=== PATIENT | female | born 1960 | race Caucasian/White ===

== ENCOUNTER → 2019-02-21 | Outpatient (CLI) | payer BC ==
[~2019-02-21] MED LIST: CALC-656 PO; CETI-9 PO; CRAN200C PO; DCS100C PO; HYDR-34 PO; IBP600T1 PO; IBP800T PO; MULT-305 PO; OMEP-10 PO; PS30T PO; Simethicone PO
--- NOTE | 2019-02-21 10:04 | Diagnostic Imaging Report ---
Indication: Routine screening. Comparison is made with prior mammogram 05/24/2017 and 05/17/2016. 2-D and 3-D bilateral screening mammography was performed with CAD. Scattered fibroglandular densities are identified bilaterally. Intraparenchymal lymph nodes in the outer portions of both breasts appear stable. No new mass or malignant-appearing microcalcifications are seen. The axillae are unremarkable. Impression: BI-RADS category 2 No mammographic features suspicious for malignancy are identified. ACR BI-RADS Category 2: Benign findings. Result letter will be mailed to the patient. Note: At least 10% of breast cancer is not imaged by mammography. Dictated by: Dictated on workstation # [id number]
== END ==
LOC: RAD 07:50
PROVIDERS: ATTEND Obstetrics & Gynecology
DX: Z12.31 Encounter for screening mammogram for malignant neoplasm of breast (principal)
CPT/HCPCS: 77067

== ENCOUNTER → 2020-12-15 | Outpatient (CLI) | payer OTHER ==
--- NOTE | 2020-12-15 14:55 | Diagnostic Imaging Report ---
PROCEDURE: US Non-ob pelvis comp/trans. TECHNIQUE: Multiple realtime grayscale images were obtained of the pelvis in various projections transabdominally and endovaginally. INDICATION: Pelvic and perineal pain. CORRELATION STUDY: 07/23/2014 FINDINGS: The uterus is not visualized compatible with hysterectomy. Left ovary not visualized compatible with surgical removal. There is thought to remain a right ovary. However, this cannot be visualized either transabdominally and/or transvaginal imaging. No definitive abnormal adnexal mass lesion. IMPRESSION: 1. Findings compatible with hysterectomy and left-sided oophorectomy. 2. There is reported likely right ovary remaining. However, this cannot be visualized either transabdominally and/or transvaginal imaging. No definitive abnormal adnexal mass lesion. Dictated by: Dictated on workstation # [id number]
--- NOTE | 2020-12-16 14:21 | Diagnostic Imaging Report ---
Indication: Routine screening. Comparison is made with prior mammogram 02/21/2019 and 05/24/2017. 2-D and 3-D bilateral screening mammography was performed with CAD. Scattered fibroglandular densities are identified bilaterally. The bilateral breast nodules appear stable. No new mass or malignant appearing microcalcifications are seen. Axillae are unremarkable. IMPRESSION: BI-RADS Category 2 No mammographic features suspicious for malignancy are identified. ACR BI-RADS Category 2: Benign findings. Result letter will be mailed to the patient. Note: At least 10% of breast cancer is not imaged by mammography. Dictated by: Dictated on workstation # [id number]
== END ==
LOC: RAD 13:52
PROVIDERS: ATTEND Obstetrics & Gynecology
DX: Z12.31 Encounter for screening mammogram for malignant neoplasm of breast (principal); R10.2 Pelvic and perineal pain
CPT/HCPCS: 76830; 76856; 77063; 77067

== ENCOUNTER → 2021-12-28 | Outpatient (CLI) | payer OTHER ==
[~2021-12-28] VITALS: Ht 154.9 cm; Wt 59.4 kg
== END | disposition home or self-care (01) ==
LOC: PREOP 07:18
PROVIDERS: ATTEND Internal Medicine
DX: Z01.818 Encounter for other preprocedural examination (principal)

== ENCOUNTER 2021-12-30 07:54 | Day surgery (SDC) | payer OTHER ==
--- NOTE | 2021-12-28 07:58 | HISTORY AND PHYSICAL ---
DATE OF SERVICE: PANENDOSCOPY HISTORY AND PHYSICAL DATE OF ADMISSION: 12/30/2021 HISTORY OF PRESENT ILLNESS: The patient is 61-year-old white female referred by Dr. Salguero for screening colonoscopy as well as diagnostic EGD. Over the past several months, she has noticed dysphagia to solids, pointed to the precordial area where she notes discomfort. It has improved with PPI therapy. She is more concerned that she normally would be as her brother was diagnosed with esophageal cancer and succumbed to the disease in his 60s. The patient reports no smoking or drinking history. About a year ago, she started proton pump inhibitor therapy for similar symptoms, it did improve. She stopped with recurrence of symptoms. She denies hoarseness, cough or sore throat. She has noted no melena or bright red blood per rectum. She underwent colonoscopy [address] Santana, at which time on review of her electronic medical record no evidence for neoplasia, diverticular disease or other abnormalities were reported. She is not aware of any family history for colon cancer. She is currently only taking omeprazole, her only prescription medication, reporting any other significant past medical history: PAST SURGICAL HISTORY: For benign reasons, she has had hysterectomy and previous section. She has also had abdominoplasty in 1990. FAMILY HISTORY: Other than her brother's esophageal cancer, it is also pertinent for diabetes in brother and her father for which she reports no evidence for. SOCIAL HISTORY: She is retired. No past smoking. Occasional social alcohol intake. Five children, all via section. . REVIEW OF SYSTEMS: CONSTITUTIONAL: Denies night sweats, chills, fever or change in weight. GASTROINTESTINAL: As noted in the HPI. PULMONARY: Denies cough, wheezing or shortness of breath. CARDIOVASCULAR: Denies orthopnea, PND, pedal edema, dyspnea on exertion or chest discomfort. PHYSICAL EXAMINATION: GENERAL: Reveals a white female, appears to be in no acute distress. VITAL SIGNS: Normal weight at 131, blood pressure 152/88. HEENT: Unremarkable. Sclerae nonicteric. CHEST: Clear. NECK: Revealed no JVD, adenopathy or bruits. No thyroid abnormality to palpation. CHEST: Clear to auscultation. CARDIOVASCULAR: Reveals regular rate and rhythm without murmur, S3 or S4. ABDOMEN: Soft, supple without mass, organomegaly or tenderness. EXTREMITIES: Reveal no cyanosis, clubbing or edema. ASSESSMENT AND PLAN: The patient is being set up for diagnostic EGD due to history of dysphagia and a family history for esophageal cancer, index case being her brother diagnosed around the age of 60. She is also going to be undergoing screening colonoscopy. Prep instructions were given, and questions were answered. Electronic medical record was reviewed. I thank you for the referral of this pleasant lady. Job ID: [id number] DocumentID: [id number] Dictated Date: 12/26/2021 16:12:09 Retail Warehouse Associate Date: 12/26/2021 17:33:47 Dictated By: MATTY CARMONA MD MTDD
[2021-12-30] VITALS (7 sets, daily range): BP systolic 116–146; BP diastolic 65–92
[~2021-12-30] VITALS: Ht 154 cm; Wt 60.0 kg
[2021-12-30] MEDS ORDERED: LACTATED RINGERS 1,000 ML IV STA (08:07)
[2021-12-30] MEDS ORDERED: LACTATED RINGERS 1,000 ML IV ONE (08:07)
[2021-12-30] MEDS ORDERED: HURRICAINE EXT TUBE (BENZOCAINE) XX PRN (08:15)
--- NOTE | 2021-12-30 08:29 | Pre-Op Note & Conscious Sedat ---
Pre-Operative Progress Note H&P Reviewed The H&P was reviewed, patient examined and no changes noted. Date H&P Reviewed: Dec 30, 2021 Time H&P Reviewed: 08:28 Conscious Sedation Pre-Proced ASA Score 2 For ASA 3 and 4: Consider anesthesia and medical clearance. Also, for patients with a history of failed moderate sedation consider anesthesia. Airway Lungs Heart ASA score ASA 1: a normal healthy patient ASA 2: a patient with a mild systemic disease (mid diabetes, controlled hypertension, obesity ASA 3: a patient with a severe systemic disease that limits activity (angina, COPD, prior Myocardial infarction) ASA 4: a patient with an incapacitating disease that is a constant threat to life (CHF, renal failure) ASA 5: a moribund patient not expected to survive 24 hrs. (ruptured aneurysm) ASA 6: a declared brain- patient whose organs are being harvested. For emergent operations, add the letter E after the classification Mallampati Classification Grade 2 Sedation Plan Analgesia, Amnesia, Plan communicated to team members, Discussed options with patient/fam, Discussed risks with patient/fam The patient is an appropriate candidate to undergo the planned procedure, sedation, and anesthesia. The patient immediately re-assessed prior to indication. MATTY CARMONA MD Dec 30, 2021 08:29
[2021-12-30] MEDS ORDERED: PROPOFOL INJECTION 50 ML IV ONE (09:01)
--- NOTE | 2021-12-30 09:42 | Anesthesia-General Post-Op ---
MAC Patient Condition Mental Status/LOC: Same as Preop Cardiovascular: Satisfactory Nausea/Vomiting: Absent Respiratory: Satisfactory Pain: Controlled Complications: Absent Post Op Complications Complications None Follow Up Care/Instructions Patient Instructions None needed. Anesthesiology Discharge Order Discharge Order Patient is doing well, no complaints, stable vital signs, no apparent adverse anesthesia problems. No complications reported per nursing. JOEL SILVA CRNA Dec 30, 2021 09:42
--- NOTE | 2021-12-30 18:30 | OPERATIVE REPORT ---
DATE OF SERVICE: PANENDOSCOPY SUMMARY EGD was performed for evaluation of dysphagia and family history for esophageal cancer and colonoscopy was performed for screening. The patient was placed in the left lateral decubitus position. The endoscope was inserted into the oral cavity and under direct visualization, the esophagus was intubated. The endoscope was passed down the esophagus through the stomach and then second portion of the duodenum. A careful inspection was made as the endoscope was withdrawn. FINDINGS: The proximal and mid esophagus were unremarkable. There was a small hiatal hernia present and I could not rule out the possibility of short segment Mejia's. Biopsies were obtained from at or just below the Z line and submitted for histopathology. There was no evidence for stricture formation or erosive esophagitis. No rings, webs, strictures or extrinsic compression was identified. The cardia, fundus, antrum, pylorus, pyloric channel, duodenal bulb and second portion of the duodenum were unremarkable. ASSESSMENT: Small hiatal hernia was present with questionable short segment Mejia's. We will await histopathology report from biopsies from the distal esophagus. If Mejia's is not present, the patient will not require future screening EGD. No other abnormalities were noted. We then proceeded with colonoscopy. Prior to undergoing colonoscopy, a digital rectal evaluation was performed. Anal sphincter tone was normal and the perianal reflexes intact. No abnormalities were noted on digital inspection of the anal canal or distal rectal vault. The colonoscope was then inserted into the rectum and under direct visualization advanced to the cecum. Cecum was identified by identification of the ileocecal valve and cecal strap. Photographic documentation was obtained. A careful inspection was made as the colonoscope was withdrawn. FINDINGS: There was no evidence for internal or external hemorrhoids. The rectum was unremarkable. Small sigmoid diverticulum were present without evidence of diverticulitis. The descending colon, splenic flexure, transverse colon, hepatic flexure, ascending colon and cecum were unremarkable. ASSESSMENT: Several small sigmoid diverticulum were present. Otherwise, normal colonoscopy to the cecum. We would advocate consideration for a repeat screening colonoscopy in 10 years. I thank you for the referral of this pleasant lady. Job ID: [id number] DocumentID: [id number] Dictated Date: 12/30/2021 09:43:36 Assistant Professor Of Geography Date: 12/30/2021 18:29:34 Dictated By: MATTY CARMONA MD
== END 2021-12-30 10:35 | disposition home or self-care (01) ==
LOC: ENDO 07:54
PROVIDERS: ATTEND Internal Medicine
DX: Z12.11 Encounter for screening for malignant neoplasm of colon (principal); K44.9 Diaphragmatic hernia without obstruction or gangrene; K29.50 Unspecified chronic gastritis without bleeding; K20.90 Esophagitis, unspecified without bleeding; K57.30 Diverticulosis of large intestine without perforation or abscess without bleeding; Z79.899 Other long term (current) drug therapy; Z80.0 Family history of malignant neoplasm of digestive organs
CPT/HCPCS: 88305

== ENCOUNTER → 2022-01-03 | Outpatient (CLI) | payer OTHER ==
--- NOTE | 2022-01-03 14:20 | Diagnostic Imaging Report ---
INDICATION: Routine screening. COMPARISON: 12/15/2020 and 02/21/2019. TECHNIQUE: 2D and 3D bilateral screening mammography was performed with CAD. FINDINGS: Scattered fibroglandular densities are identified bilaterally. A nodular density in the outer right breast appears stable. A nodular density in the outer left breast posteriorly is stable. No spiculated mass or malignant-appearing microcalcifications are seen. The axillae are unremarkable. IMPRESSION: No mammographic features suspicious for malignancy are identified. ACR BI-RADS Category 2: Benign findings. Result letter will be mailed to the patient. Note: At least 10% of breast cancer is not imaged by mammography. Dictated by: Dictated on workstation # [id number]
== END ==
LOC: RAD 09:58
PROVIDERS: ATTEND Family Medicine
DX: Z12.31 Encounter for screening mammogram for malignant neoplasm of breast (principal)
CPT/HCPCS: 77063; 77067

== ENCOUNTER → 2023-01-30 | Outpatient (CLI) | payer OTHER ==
--- NOTE | 2023-01-30 14:20 | Diagnostic Imaging Report ---
INDICATION: Routine screening. COMPARISON: 01/03/2022 and 12/15/2020. TECHNIQUE: 2D and 3D bilateral screening mammography was performed with CAD. FINDINGS: Scattered fibroglandular densities are identified bilaterally. Nodular densities in both breasts are stable. No spiculated mass or malignant-appearing microcalcifications are seen. The axillae are unremarkable. IMPRESSION: No mammographic features suspicious for malignancy are identified. ACR BI-RADS Category 2: Benign findings. Result letter will be mailed to the patient. Note: At least 10% of breast cancer is not imaged by mammography. Dictated by: Dictated on workstation # [id number]
== END ==
LOC: RAD 09:44
PROVIDERS: ATTEND Obstetrics & Gynecology
DX: Z12.31 Encounter for screening mammogram for malignant neoplasm of breast (principal)
CPT/HCPCS: 77063; 77067

== ENCOUNTER 2023-03-18 10:06 | Emergency (ER) | payer OTHER ==
[~2023-03-18] VITALS: Ht 157 cm; Wt 65.7 kg
[2023-03-18] MEDS ORDERED: TETRACAINE 0.5% OPHTH SOLN 4 ML BTL (SINGLE DOSE ONLY) OU ONE (10:45)
[2023-03-18] MEDS ORDERED: FLUORESCEIN 1 MG OPHTHALMIC STRIPS OU ONE (10:45)
--- NOTE | 2023-03-18 10:58 | ED EENT ---
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 She was cleaning her garage this morning and picked up a bag and it showered her with dust to her left eye. She did rub her eye quickly and then realized that she may have something on it and flushed it out with 3 bottles of moisture eyedrops. Has pain and irritation to the left eye both upper and lower lid area. Denies other injury or concern. Denies vision problems. She is worried that she may have scratched her eye. Timing/Duration: abrupt Severity: mild Location: eye (L) Prearrival Treatment: no prearrival treatment (LACI MARINO MD) Allergies and Home Medications Allergies Coded Allergies: No Known Drug Allergies (Unverified , 11/10/11) Patient Home Medication List Home Medication List Reviewed: Yes (LACI MARINO MD) Polymyxin B Sulf/Trimethoprim (Polytrim Eye Drops) 10,000 Unit-1 Mg/Ml Drops, 10 ML OP Q4H Prescribed by: MARICRUZ CANAS on 03/18/23 1113 Review of Systems Review of Systems Constitutional: see HPI; No chills, No fever Eyes: See HPI, Foreign Body Sensation, Inflammation, Pain Respiratory: no symptoms reported Cardiovascular: no symptoms reported (LACI MARINO MD) Past Bsrdawx-Ylvhdz-Ctlcgh Hx Patient Social History Tobacco Use?: No Substance use?: No Alcohol Use?: Yes Alcohol Frequency: Once in a while (LACI MARINO MD) Immunizations Up To Date First/Initial COVID19 Vaccinat: yes Second COVID19 Vaccination Dusty: yes Third COVID19 Vaccination Date: yes (LACI MARINO MD) Seasonal Allergies Seasonal Allergies: No (LACI MARINO MD) Past Medical History Surgery/Hospitalization HX: DENIES MED HX Surgeries: Yes (C/S X5, TUMMY TUCK, D&C, eyelid sx) Hysterectomy Respiratory: No Cardiac: No Neurological: No Reproductive Disorders: Yes (UTERINE ENLARGEMENT) 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 Genitourinary: No Gastrointestinal: No Musculoskeletal: No Endocrine: No HEENT: No Cancer: No Psychosocial: No Integumentary: No Blood Disorders: No (LACI MARINO MD) Family Medical History Reviewed Nursing Family Hx (LACI MARINO MD) Alcoholism G8 BROTHER Arthritis G8 BROTHER Cataracts 19 MOTHER Diabetes mellitus 19 FATHER G8 BROTHER Drug abuse G8 BROTHER Esophageal cancer Hypertension 19 MOTHER No Family History of: AIDS Abdominal aortic aneurysm Alzheimer's disease Asthma Cancer of mouth Cardiovascular disease Colon cancer Completed stroke Congenital disease Dementia Dysphasia Glaucoma Headache disorder Kidney disease Myocardial infarction Parkinson's disease Prostate cancer Psychosocial problem Respiratory disorder Seizure disorder Severe allergy Thyroid disease Physical Exam Vital Signs Vital Signs - First Documented 03/18/23 10:14 Temp 36.5 Pulse 66 Resp 18 B/P (MAP) 160/94 (116) Pulse Ox 100 O2 Delivery Room Air (MYAH RANDALL) Height, Weight, BMI Height: 5'2.00" Weight: 142lbs. oz. 64.894609ss; 26.00 BMI Method: General Appearance: WD/WN, no apparent distress Eyes: right eye conjunctival inflammation; left eye normal inspection; bilateral eye PERRL, bilateral eye EOMI Cardiovascular: regular rate, rhythm, no murmur Respiratory: lungs clear, normal breath sounds (LACI MARINO MD) Eyes: right eye other (Conjunctiva inflammation left eye. Small area of uptake to the left medial conjunctiva. Small abrasion to the left medical cornea with uptake. Negative Vijay sign. Pupils reactive light. Extract ocular movements intact.) (MYAH RANDALL) Progress/Results/Core Measures Results/Orders Medications Given in ED Current Medications Medications Dose Ordered Sig/Aure Route Start Time Stop Time Status Last Admin Dose Admin Fluorescein Sodium 1 mg ONCE ONCE OU 03/18/23 10:45 03/18/23 10:46 DC 03/18/23 10:56 1 MG Tetracaine HCl 4 ml ONCE ONCE OU 03/18/23 10:45 03/18/23 10:46 DC 03/18/23 10:56 4 ML (MYAH RANDALL) Vital Signs/I&O 03/18/23 03/18/23 10:14 11:18 Temp 36.5 36.5 Pulse 66 66 Resp 18 18 B/P (MAP) 160/94 (116) 160/94 Pulse Ox 100 100 O2 Delivery Room Air Room Air (MYAH RANDALL) Blood Pressure Mean: 116 Progress Progress Note : Progress Note Seen and evaluated. We will go ahead and initiate fluorescein stain after tetracaine drops. This will be done by MARICRUZ Villa. Monitor patient. (LACI MARINO MD) Departure Communication (PCP) Differential diagnosis, left eye foreign body, corneal abrasion, conjunctival abrasion, globe injury. On exam mild left medial conjunctiva inflammation and erythema. Extraocular movements intact. Pupils reactive to light. She states pain seems to be improving some. Exam the left eye with tetracaine and fluorescein eye strip. She had some small amount of uptake to the left medial conjunctiva and potentially small area of the cornea. There was no evidence of foreign body. Extensive irrigation and cleaning the left eye with normal saline. Patient tolerated procedure well. Negative Vijay sign. No evidence of globe rupture. No hyphema. No visual loss. She denies contacts. She is up-to-date on her tetanus. Due for concern for abrasion patient will be discharged with Polytrim which was sent to her pharmacy. Pain improved after tetracaine. Recommend optometry follow-up in the next 1 to 2 days which was provided in discharge instructions. If any change in vision, increase eye redness or pain to return back to ED. (MYAH RANDALL) Impression Primary Impression: Eye abrasion Disposition: 01 HOME, SELF-CARE Condition: Stable Departure-Patient Inst. Decision time for Depature: 11:12 (MYAH RANDALL) Referrals: MARIS HOOVER DO (PCP/Family) Primary Care Physician Patient Instructions: How to Use Eye Drops Add. Discharge Instructions: Use eyedrops as prescribed. 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 [facility] [phone] All discharge instructions reviewed with patient and/or family. Voiced understanding. Scripts Polymyxin B Sulf/Trimethoprim (Polytrim Eye Drops) 10,000 Unit-1 Mg/Ml Drops 10 ML OP Q4H for 7 Days, #1 DROPS Prov: MYAH RANDALL 03/18/23 LACI MARINO MD Mar 18, 2023 10:58 MYAH RANDALL Mar 18, 2023 11:14
[2023-03-18] MEDS ORDERED: POLY10DR OP ×2 (11:13→13:05)
[2023-03-18 11:18] VITALS: BP 160/94
== END 2023-03-18 11:18 | disposition home or self-care (01) ==
LOC: EDUNIT# 10:06 → ER 10:09
DX: S00.212A Abrasion of left eyelid and periocular area, initial encounter (principal); X58.XXXA Exposure to other specified factors, initial encounter
CPT/HCPCS: 99281